=== PATIENT | female | born 1955 | race Caucasian/White ===

== ENCOUNTER → 2018-06-16 | Outpatient (CLI) | payer MEDICARE ==
--- NOTE | 2018-06-16 18:08 | BD ---
EXAMINATION TYPE: Axial Bone Density DATE OF EXAM: 06/16/2018 COMPARISON: NONE CLINICAL HISTORY: 63-year-old female postmenopausal screening without HRT Height: 64 inches Weight: 184 FRAX RISK QUESTIONS: Alcohol (3 or more units per day): no Family History (Parent hip fracture): no Glucocorticoids (More than 3mos): no (Ex: prednisone, prednisolone, methylprednisolone, dexamethasone, and hydrocortisone). History of Fracture in Adulthood: yes, calcaneus Secondary Osteoporosis: 1. Type 1 Diabetes: no 2. Hyperthyroidism: no 3. Menopause before 45: yes 4. Malnutrition: no 5. Chronic liver disease: no Rheumatoid Arthritis: no Current Tobacco Use: no RISK FACTORS HISTORY OF: Family History of Osteoporosis: not to patient's knowledge Active: yes Diet low in dairy products/other sources of calcium: no, several servings throughout the week Postmenopausal woman: yes Take estrogen and/or progesterone medications: not now How long: about 5 years Lost more than 2 inches in height since high school: no Frequent falls: no Poor Health: no Hyperparathyroidism: no Adrenal Insufficiency: no MEDICATIONS: Prednisone or other steroids: no Thyroid Medications: yes Which medication: Levothyroxine How Long: since patient was in early 20s Osteoporosis Medications: no Additional Medications: calcium & Vitamin D Additional History: bilateral hip pain EXAM MEASUREMENTS: Bone mineral densitometry was performed using the [employer] System. Bone mineral density as measured about the Lumbar spine is: ----- L1-L4(G/cm2): 1.098 T Score Values are as follows: ----- L2: -1.5 ----- L3: -0.1 ----- L4: -0.1 ----- L1-L4: -0.7 Bone mineral density has: Increased 14.1% since study of: 11/29/2007 (more recent study in physician office Bone mineral density about the R hip (g/cm2): 0.735 Bone mineral density about the L hip (g/cm2): 0.753 T Score values are as follows: -----R Neck: -2.2 -----L Neck: -2.1 -----R Total: -1.2 -----L Total: -1.7 Bone mineral density has: Decreased -1.1% since study of: 11/29/2007 (more recent study in physician office) IMPRESSION: Osteopenia (T Score between -2.5 and -1). There is slightly increased risk of fracture and the patient may be considered for treatment. Re-Screen 2-5 years. NOTE: T-SCORE=SD OF THE YOUNG ADULT MEAN.
--- NOTE | 2018-06-17 09:14 | MM ---
Reason for exam: screening (asymptomatic). Last mammogram was performed 1 year ago. History: Patient is postmenopausal. Family history of breast cancer in grandmother. Took estrogen for 5 years. Took progesterone for 5 years. Physical Findings: A clinical breast exam by your physician is recommended on an annual basis and results should be correlated with mammographic findings. MG 3D Screening Mammo W/Cad Bilateral CC and MLO view(s) were taken. Prior study comparison: June 14, 2017, bilateral MG 3d screening mammo w/cad. April 15, 2015, bilateral MG screening mammo w CAD. The breast tissue is heterogeneously dense. This may lower the sensitivity of mammography. No significant changes when compared with prior studies. ASSESSMENT: Negative, BI-RAD 1 RECOMMENDATION: Routine screening mammogram of both breasts in 1 year.
== END | disposition home or self-care (01) ==
LOC: RADMAMWWP 08:58
PROVIDERS: ATTEND Family Medicine
DX: Z12.31 Encounter for screening mammogram for malignant neoplasm of breast (principal); M85.851 Other specified disorders of bone density and structure, right thigh; M85.852 Other specified disorders of bone density and structure, left thigh; M85.89 Other specified disorders of bone density and structure, multiple sites; Z78.0 Asymptomatic menopausal state
CPT/HCPCS: 77063; 77067; 77080

== ENCOUNTER 2019-04-13 18:42 | Observation (INO) | payer MEDICARE ==
[2019-04-13] MEDS ORDERED: MECLIZINE 12.5 MG TAB PO STA (19:21)
--- NOTE | 2019-04-13 19:36 | ED ---
General Adult HPI - General Source: patient Mode of arrival: ambulatory Limitations: no limitations <Heladio Harding - Last Filed: 04/13/19 22:18> <Yary Solis - Last Filed: 04/18/19 13:02> - General Chief complaint: Neuro Symptoms/Deficit Stated complaint: Dizzy, ringing in ears Time Seen by Provider: 04/13/19 19:00 - History of Present Illness Initial comments: Patient is a 63-year-old female with history of vertigo was presenting to the emergency department with chief complaint of dizziness. Patient reports she initially developed vertigo for about a week and has been gradually getting better , however it is still present. Patient also reports for the past day she has developed tinnitus in both ears but more on the right side on the left. Patient does report ALLERGIES and takes Zyrtec daily. Patient reports nausea but no vomiting over the past week. Patient denies any lightheadedness, heada ches, chest pain, blurry vision or shortness of breath. (Heladio Harding) - Related Data Home Medications Medication Instructions Recorded Confirmed Levothyroxine Sodium [Synthroid] 125 mcg PO HS 05/02/14 04/14/19 Cetirizine HCl [Zyrtec] 10 mg PO HS 04/13/19 04/14/19 Losartan Potassium [Cozaar] 25 mg PO DAILY 04/13/19 04/14/19 Previous Rx's Medication Instructions Recorded Meclizine [Antivert] 25 mg PO BID PRN #20 tab 04/14/19 Allergies Allergy/AdvReac Type Severity Reaction Status Date / Time No Known Allergies Allergy Verified 04/14/19 04:11 Review of Systems ROS Other: All systems not noted in ROS Statement are negative. <Heladio Harding - Last Filed: 04/13/19 22:18> ROS Other: All systems not noted in ROS Statement are negative. <Yary Solis - Last Filed: 04/18/19 13:02> ROS Statement: Those systems with pertinent positive or pertinent negative responses have been documented in the HPI. Past Medical History Past Medical History: Thyroid Disorder History of Any Multi-Drug Resistant Organisms: None Reported Past Surgical History: No Surgical Hx Reported, Cholecystectomy, Orthopedic Surgery Past Psychological History: No Psychological Hx Reported Smoking Status: Never smoker Past Alcohol Use History: Occasional Past Drug Use History: None Reported <Heladio Harding - Last Filed: 04/13/19 22:18> General Exam Limitations: no limitations General appearance: alert, in no apparent distress Head exam: Present: atraumatic, normocephalic, normal inspection Eye exam: Present: normal appearance, PERRL, EOMI Pupils: Present: normal accommodation ENT exam: Present: normal exam, normal oropharynx, mucous membranes moist, TM's normal bilaterally, normal external ear exam Neck exam: Present: normal inspection, full ROM Respiratory exam: Present: normal lung sounds bilaterally Cardiovascular Exam: Present: regular rate, normal rhythm, normal heart sounds Extremities exam: Present: normal inspection Back exam: Present: normal inspection Neurological exam: Present: alert, oriented X3 Psychiatric exam: Present: normal affect, normal mood Skin exam: Present: warm, intact, normal color <Heladio Harding - Last Filed: 04/13/19 22:18> Course Vital Signs 04/13/19 04/13/19 04/14/19 18:48 22:34 04:00 Temperature 97.5 F L 98 F 97.2 F L Pulse Rate 54 L 54 L Pulse Rate [ 50 L Pulse Oximetery ] Respiratory 20 18 18 Rate Blood Pressure 147/89 173/81 Blood Pressure 115/61 [Right Arm] O2 Sat by Pulse 97 100 96 Oximetry EKG Findings - EKG Comments: EKG Findings:: Sinus bradycardia. Inverted T waves in V1 through V3. Ventricular rate 51, W[place] interval 162, QRS duration 94, QT/QTc 460/431. <Heladio Harding - Last Filed: 04/13/19 22:18> Medical Decision Making - Lab Data Result diagrams: 04/13/19 19:08 04/13/19 19:08 <Heladio Harding - Last Filed: 04/13/19 22:18> - Lab Data Result diagrams: 04/13/19 19:08 04/13/19 19:08 <Yary Solis - Last Filed: 04/18/19 13:02> - Medical Decision Making Patient is 63-year-old female with history of vertigo is presenting to the emergency department with a chief complaint of dizziness. Patient reports she developed onset of vertigo about one week ago which has not resolved. Patient reports over the last day she has also developed tendinitis on the right side more than the left. Patient also has right-sided fullness. I suspect the patient to have Mnire's disease. However, considering the patient never had a previous workup and her age. Basic labs EKG and a CT was obtained. Patient does have ALLERGIES and is take Zyrtec daily. Patient does have decreased kidney function but that is very similar to her last draws. EKG showing no ST elevation but does show inverted T waves potentially indicating cardiac ischemia. Patient has no previous cardiac history but does have hypertension. No previous EKG available for comparison. Patient had no previous workup regarding the vertigo. Considering the abnormal EKG results with no available comparison. Cardiac workup will be initiated and patient will be admitted for observation. Patient is understanding and agreeable. All questions answered. Case discussed with Dr. Solis consulting physician is Dr Byrne. Cardiology consulted. Neurology consulted. (Heladio Harding) I was available for consultation in the emergency department. The history and physical exam were done by the midlevel provider. I was consulted for this patients care. I reviewed the case with the midlevel provider and based on their presentation of the patient, I agree with the assessment, medical decision making and plan of care as documented. I evaluated the patient myself and she was agreeable to the plan.I discussed the case with Dr. Byrne who accepted admission. Chart was dictated using [employer] dictation software. Attempts were made to correct any dictation errors however some typographical errors may persist. (Yary Solis) - Lab Data Lab Results 04/13/19 04/13/19 04/13/19 Range/Units 19:08 19:08 19:08 WBC 6.0 (3.8-10.6) k/uL RBC 4.53 (3.80-5.40) m/uL Hgb 13.7 (11.4-16.0) gm/dL Hct 41.0 (34.0-46.0) % MCV 90.4 (80.0-100.0) fL MCH 30.2 (25.0-35.0) pg MCHC 33.4 (31.0-37.0) g/dL RDW 12.9 (11.5-15.5) % Plt Count 224 (150-450) k/uL Neutrophils % 65 % Lymphocytes % 25 % Monocytes % 6 % Eosinophils % 3 % Basophils % 1 % Neutrophils # 3.9 (1.3-7.7) k/uL Lymphocytes # 1.5 (1.0-4.8) k/uL Monocytes # 0.3 (0-1.0) k/uL Eosinophils # 0.2 (0-0.7) k/uL Basophils # 0.1 (0-0.2) k/uL PT 9.6 (9.0-12.0) sec INR 0.9 (<1.2) APTT 23.2 (22.0-30.0) sec Sodium 143 (137-145) mmol/L Potassium 4.0 (3.5-5.1) mmol/L Chloride 102 (98-107) mmol/L Carbon Dioxide 25 (22-30) mmol/L Anion Gap 16 mmol/L BUN 25 H (7-17) mg/dL Creatinine 1.08 H (0.52-1.04) mg/dL Est GFR (CKD-EPI)AfAm 64 (>60 ml/min/1.73 sqM) Est GFR (CKD-EPI)NonAf 55 (>60 ml/min/1.73 sqM) Glucose 85 (74-99) mg/dL Calcium 9.9 (8.4-10.2) mg/dL Magnesium (1.6-2.3) mg/dL Total Bilirubin 0.4 (0.2-1.3) mg/dL AST 23 (14-36) U/L ALT 28 (9-52) U/L Alkaline Phosphatase 77 (38-126) U/L Troponin I (0.000-0.034) ng/mL Total Protein 7.5 (6.3-8.2) g/dL Albumin 4.8 (3.5-5.0) g/dL TSH (0.465-4.680) mIU/L Free T4 (0.78-2.19) ng/dL 04/13/19 04/13/19 04/13/19 Range/Units 19:08 19:08 19:08 WBC (3.8-10.6) k/uL RBC (3.80-5.40) m/uL Hgb (11.4-16.0) gm/dL Hct (34.0-46.0) % MCV (80.0-100.0) fL MCH (25.0-35.0) pg MCHC (31.0-37.0) g/dL RDW (11.5-15.5) % Plt Count (150-450) k/uL Neutrophils % % Lymphocytes % % Monocytes % % Eosinophils % % Basophils % % Neutrophils # (1.3-7.7) k/uL Lymphocytes # (1.0-4.8) k/uL Monocytes # (0-1.0) k/uL Eosinophils # (0-0.7) k/uL Basophils # (0-0.2) k/uL PT (9.0-12.0) sec INR (<1.2) APTT (22.0-30.0) sec Sodium (137-145) mmol/L Potassium (3.5-5.1) mmol/L Chloride (98-107) mmol/L Carbon Dioxide (22-30) mmol/L Anion Gap mmol/L BUN (7-17) mg/dL Creatinine (0.52-1.04) mg/dL Est GFR (CKD-EPI)AfAm (>60 ml/min/1.73 sqM) Est GFR (CKD-EPI)NonAf (>60 ml/min/1.73 sqM) Glucose (74-99) mg/dL Calcium (8.4-10.2) mg/dL Magnesium 2.2 (1.6-2.3) mg/dL Total Bilirubin (0.2-1.3) mg/dL AST (14-36) U/L ALT (9-52) U/L Alkaline Phosphatase (38-126) U/L Troponin I <0.012 (0.000-0.034) ng/mL Total Protein (6.3-8.2) g/dL Albumin (3.5-5.0) g/dL TSH 0.135 L (0.465-4.680) mIU/L Free T4 1.76 (0.78-2.19) ng/dL Disposition Is patient prescribed a controlled substance at d/c from ED?: No Time of Disposition: 22:41 <Heladio Harding - Last Filed: 04/13/19 22:18> <Yary Solis - Last Filed: 04/18/19 13:02> Clinical Impression: Inverted T wave, Dizziness, Tinnitus Disposition: ADMITTED IP TO THIS HOSP Condition: Stable
[2019-04-13 20:08] LABS: Basophils # (A) 0.1 k/uL (0-0.2); Basophils % (A) 1 %; Eosinophils # (A) 0.2 k/uL (0-0.7); Eosinophils % (A) 3 %; HGB 13.7 gm/dL (11.4-16.0); Lymphocytes # (A) 1.5 k/uL (1.0-4.8); Lymphocytes % (A) 25 %; MCH 30.2 pg (25.0-35.0); MCHC 33.4 g/dL (31.0-37.0); MCV 90.4 fL (80.0-100.0); Mean Platelet Volume 6.7; Monocytes # (A) 0.3 k/uL (0-1.0); Monocytes % (A) 6 %; Neutrophils # (A) 3.9 k/uL (1.3-7.7); Neutrophils % (A) 65 %; Platelet Count 224 k/uL (150-450); RBC 4.53 m/uL (3.80-5.40); RDW 12.9 % (11.5-15.5)
[2019-04-13 20:16] LABS: Albumin 4.8 g/dL (3.5-5.0); Calcium 9.9 mg/dL (8.4-10.2); Total Bilirubin 0.4 mg/dL (0.2-1.3); Total Protein 7.5 g/dL (6.3-8.2)
[2019-04-13 20:18] LABS: INR 0.9 (<1.2); Partial Thromboplastin Time 23.2 sec (22.0-30.0); Prothrombin Time 9.6 sec (9.0-12.0)
--- NOTE | 2019-04-13 22:22 | XR ---
EXAM: XR Chest, 2 Views CLINICAL HISTORY: Chest pain. TECHNIQUE: Frontal and lateral views of the chest. COMPARISON: 05/02/2014. FINDINGS: Lungs: No consolidative change. There is 0.4 cm calcified granuloma at the periphery of the left midlung zone is again noted. Pleural space: No pneumothorax. No pleural effusion. Heart: Cardiac mediastinal silhouettes are unremarkable. Mediastinum: See above. Bones/joints: Osteopenia. Ribs are unremarkable. 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 IMPRESSION: No active disease.
[2019-04-13] MEDS ORDERED: DIAZEPAM 5 MG/ML 2 ML INJ IVP STA (22:41)
[2019-04-14] MEDS ORDERED: NALOXONE 0.4 MG/ML 1 ML VIAL IV PRN (00:10)
[2019-04-14] MEDS ORDERED: methylPREDNISolone SOD SUCCI 40 MG/ML 1 ML VIAL IV STA (09:03)
[2019-04-14] MEDS ORDERED: LOSARTAN 25 MG TAB PO SCH (09:15)
--- NOTE | 2019-04-14 11:30 | CT ---
EXAMINATION TYPE: CT brain wo con DATE OF EXAM: 04/13/2019 COMPARISON: None INDICATION: Vertigo DLP: 1100.4 mGycm, Automated exposure control for dose reduction was used. CONTRAST: None CT of the brain is performed utilizing 3 mm thick sections through the posterior fossa and 3 mm thick sections through the remaining calvarium. Study is performed within 24 hours of arrival to the hosp [facility]. No abnormal hyperdensity is present to suggest an acute intracranial hemorrhage. No mass lesion is evident. No acute infarcts are evident. Ventricles and sulci are appropriate for the patient age. Paranasal sinuses and mastoid air cells within the [id number] are clear. IMPRESSIONS: 1. Normal CT Brain 2. Preliminary report was provided by the on-call radiologist.
--- NOTE | 2019-04-14 12:09 | P.HPIM ---
History of Present Illness H&P Date: 04/14/19 Chief Complaint: vertigo Betty Izquierdo is a 63 yo F with PMH of HTN, hypothyroidism, allergic rhinitis who presented to the ED complaining of 1 week history of vertigo and tinnitus. She traces this episode back to last week when she woke up and shortly after saw a twinkle of light out of her L peripheral vision. This lasted for a few hours and she had her eyes checked at the opthamologist. After she had a dilated eye exam, she states she began to experience vertigo sensation she was spinning. She states this has been present almost constantly since it began but has been slowly getting better. The past few days she also has been experiencing tinnitus. Denies muffled hearing, congestion, or sore throat. She has been taking zyrtec for her allergies. Pt denies any muscle weakness, numbness or tingling or speech change. In the ED vitals and blood work unremarkable, trop negative, CXR clear and CT head without acute process. Review of Systems All systems: negative Constitutional: Denies chills, Denies fever Eyes: denies blurred vision, denies pain Ears: bilateral: tinnitus, deny: decreased hearing, ear discharge Ears, nose, mouth and throat: Reports nasal congestion, Reports vertigo, Denies headache, Denies sore throat Cardiovascular: Denies chest pain, Denies shortness of breath Respiratory: Denies cough Gastrointestinal: Denies abdominal pain, Denies diarrhea, Denies nausea, Denies vomiting Genitourinary: Denies dysuria, Denies hematuria Musculoskeletal: Denies myalgias Integumentary: Denies pruritus, Denies rash Neurological: Denies numbness, Denies weakness Psychiatric: Denies anxiety, Denies depression Endocrine: Denies fatigue, Denies weight change Past Medical History Past Medical History: Hypertension, Thyroid Disorder History of Any Multi-Drug Resistant Organisms: None Reported Past Surgical History: Cholecystectomy, Orthopedic Surgery Past Anesthesia/Blood Transfusion Reactions: No Reported Reaction Past Psychological History: No Psychological Hx Reported Smoking Status: Never smoker Past Alcohol Use History: Occasional Past Drug Use History: None Reported Medications and Allergies Home Medications Medication Instructions Recorded Confirmed Type Levothyroxine Sodium [Synthroid] 125 mcg PO HS 05/02/14 04/14/19 History Cetirizine HCl [Zyrtec] 10 mg PO HS 04/13/19 04/14/19 History Losartan Potassium [Cozaar] 25 mg PO DAILY 04/13/19 04/14/19 History Allergies Allergy/AdvReac Type Severity Reaction Status Date / Time No Known Allergies Allergy Verified 04/14/19 04:11 Physical Exam Vitals: Vital Signs Temp Pulse Pulse Resp BP BP BP 04/14/19 08:00 97.9 F 63 17 106/73 04/14/19 04:00 97.2 F L 50 L 18 115/61 04/13/19 22:34 98 F 54 L 18 173/81 04/13/19 18:48 97.5 F L 54 L 20 147/89 Pulse Ox 04/14/19 08:00 98 04/14/19 04:00 96 04/13/19 22:34 100 04/13/19 18:48 97 Intake and Output 04/13/19 04/14/19 04/14/19 22:59 06:59 14:59 Other: Voiding Method Toilet Toilet # Voids 1 Weight 77.111 kg General: well nourished, well developed, NAD. Vitals reviewed Eyes: PERRL, EOMI, conjunctiva normal HENT: normocephalic, mucus membranes moist Neck: supple, no JVD Lungs: normal respiratory effort, no wheezes or rales CV: Regular rate and rhythm, no murmur. Peripheral pulses 2+ Abdomen: soft, nondistended, no organomegaly Lymph: no cervical or axillary LAD Skin: warm and dry. Neuro: A&Ox3, normal mood and affect. Tonya-hallpike negative. No nystagmus. Cerebellar testing normal. Str 5/5 and symmetric Results CBC & Chem 7: 04/13/19 19:08 04/13/19 19:08 Labs: Abnormal Lab Results - Last 24 Hours (Table) 04/13/19 Range/Units 19:08 BUN 25 H (7-17) mg/dL Creatinine 1.08 H (0.52-1.04) mg/dL Thrombosis Risk Factor Assmnt - Choose All That Apply Any of the Below Risk Factors Present?: Yes Each Factor Represents 1 point: Obesity (BMI >25) Other Risk Factors: Yes Each Risk Factor Represents 2 Points: Age 61-74 years Other congenital or acquired thrombophilia - If yes, enter type in comment: No Thrombosis Risk Factor Assessment Total Risk Factor Score: 3 Thrombosis Risk Factor Assessment Level: Moderate Risk Assessment and Plan (1) Vertigo Current Visit: Yes Status: Acute Code(s): R42 - DIZZINESS AND GIDDINESS SNOMED Code(s): 717338084 (2) Hypothyroid Current Visit: Yes Status: Acute Code(s): E03.9 - HYPOTHYROIDISM, UNSPECIFIED SNOMED Code(s): 49200916 (3) Hypertension Current Visit: Yes Status: Acute Code(s): I10 - ESSENTIAL (PRIMARY) HYPERTENSION SNOMED Code(s): 07435623 (4) Tinnitus Current Visit: Yes Status: Acute Code(s): H93.19 - TINNITUS, UNSPECIFIED EAR SNOMED Code(s): 95206067 (5) Allergic rhinitis Current Visit: Yes Status: Acute Code(s): J30.9 - ALLERGIC RHINITIS, UNSPECIFIED SNOMED Code(s): 54254599 Plan: 1. Vertigo. Tinnitus. Suspect viral labyrinthitis. Neurology consulted. Check TSH, B12, folate and ESR. Solumedrol one time dose. Meclizine prn 2. HTN. Continue cozaar 3. Hypothyroidism. Cont synthroid 4. Allergies. Cont zyrtec
[2019-04-14 12:11] VITALS: BP 114/72; PULSE 52; RESP 18; TEMP 98.1
--- NOTE | 2019-04-14 14:29 | P.CNNES ---
History of Present Illness Consult date: 04/14/19 Reason for Consult: Dizziness Chief complaint: Dizziness/vertigo and tinnitus History of Present Illness: HISTORY OF PRESENT ILLNESS: Thank you for allowing me to evaluate Ms. Betty Izquierdo is a 63 year-old woman with PMhx of hypothyroidism, HTN, presenting with episode of dizziness x several day, consulting Neurology for evaluation of vertigo. Patient states that she started having some issues of feeling off balance since a couple of days ago. She denies any room-spinning sensation. During the same time, patient also noticed that she was having humming noise in her head, not necessarily in either ear. The humming noise has been persistent. Patient states that intermittently, she needed to hold onto the wall to walk, but at this time, she just feels slightly off balance. Patient denies any recent sickness, fever, double/blurry vision, weakness, numbness, tingling, headache. Patient states that she had a similar episode about 8 years ago when people around her were also having similar symptoms, was given a medication and got better although she was practically in bed most of the time for a couple of days. Denies any pain in her ears. Of note, patient injured her left heel years ago, and so patient feels a little bit off balance at baseline from the pain in her left heel PAST MEDICAL HISTORY: hypothyroidism, HTN PAST SURGICAL HISTORY: Cholecystectomy, orthopedic surgery HOME MEDICATIONS: daily zyrtec, levothyroxine, losartan ALLERGIES: NKDA SOCIAL HISTORY: Former smoker. A few years as a teenager. FAMILY HISTORY: Father had throat cancer. Mother had a brain aneurysm and had a stroke as a result. REVIEW OF SYSTEMS: The 14 systems are reviewed and no additional points are identified compared to the review of systems documented history and physical PHYSICAL EXAMINATION: VITAL SIGNS: T 97.9 HR 63 RR 17 BP 106/73 O2 sat 98% on RA GEN.: NAD, pleasant and cooperative HEENT: NCAT, sclera without icterus NECK: Supple SKIN AND EXTREMITIES: Warm to touch, no edema NEURO: MENTAL STATUS: Patient alert and oriented to self, place, time. Able to name the current president. Speech fluent, able to name and repeat, following all commands readily. No right and left disorientation, neglect. CRANIAL NERVES II THROUGH XII: II: Pupils are equal and reactive to light symmetrically. No afferent pupillary defect. Visual rodriguez are intact. III, IV, : No ptosis. Extraocular movements full. No nystagmus. V: Facial sensation intact from V1-3. VII. No clear facial asymmetry. VIII: slightly to finger rub bilaterally. IX, X: Symmetric palate elevation. XI: Shoulder shrug intact. XII: Tongue midline without fasciculation or atrophy. MOTOR: Normal bulk/tone. No pronator drift or tremor. Strength is 5/5 throughout all 4 extremities. SENSORY: Intact to light touch, temperature, pinprick in all 4 extremities. Romberg is negative. REFLEXES: 2+ throughout. Toes are downgoing. No clonus. Иван's is absent COORDINATION: Finger to nose and heel to browning intact. No dysmetria. Rapid alternating movements with good speed and accuracy. GAIT: Narrow-based and stable. Able to toe/heel/tandem walk but with some difficulty due to L heel pain HIINTS: negative DIAGNOSTIC TESTING: LABORATORY: WBC 6.0 Hgb 13.7 Plt 224 PT 9.6 INR 0.9 Na 143 K 4.0 Cl 102 Bicarb 25 BUN 25 Cr 1.08 AST 23 ALT 28 glucose 85 troponin <0.012 IMAGING: CT Head w/o contrast 04/13/19: No acute intracranial process. b/l BG small calcification ASSESSMENT: Ms. Izquierdo is a 63 year-old woman with PMhx of hypothyroidism, HTN, presenting with episode of dizziness x several day, consulting Neurology for evaluation of vertigo. Patient denies ever having a room spinning sensation. Patient at this time with no focal deficits. Patient also reporting a humming noise in her head, most likely tinnitus. Her feeling of "off- balance" most likely a peripheral etiology. Patient reports that her symptoms improved with steroids that was given in ER. RECOMMENDATIONS: 1. ENT outpatient follow up within 1-2 weeks 2. No additional inpatient work-up recommended 3. Neurology will sign off at this time. Past Medical History Past Medical History: Hypertension, Thyroid Disorder History of Any Multi-Drug Resistant Organisms: None Reported Past Surgical History: Cholecystectomy, Orthopedic Surgery Past Anesthesia/Blood Transfusion Reactions: No Reported Reaction Past Psychological History: No Psychological Hx Reported Smoking Status: Never smoker Past Alcohol Use History: Occasional Past Drug Use History: None Reported Medications and Allergies Home Medications Medication Instructions Recorded Confirmed Type Levothyroxine Sodium [Synthroid] 125 mcg PO HS 05/02/14 04/14/19 History Cetirizine HCl [Zyrtec] 10 mg PO HS 04/13/19 04/14/19 History Losartan Potassium [Cozaar] 25 mg PO DAILY 04/13/19 04/14/19 History Meclizine [Antivert] 25 mg PO BID PRN #20 tab 04/14/19 Rx Allergies Allergy/AdvReac Type Severity Reaction Status Date / Time No Known Allergies Allergy Verified 04/14/19 04:11 Physical Examination - Vital Signs Vital Signs: Vital Signs Temp Pulse Pulse Resp BP BP BP 04/14/19 08:00 97.9 F 63 17 106/73 04/14/19 04:00 97.2 F L 50 L 18 115/61 04/13/19 22:34 98 F 54 L 18 173/81 04/13/19 18:48 97.5 F L 54 L 20 147/89 Pulse Ox 04/14/19 08:00 98 04/14/19 04:00 96 04/13/19 22:34 100 04/13/19 18:48 97 Intake and Output 04/13/19 04/14/19 04/14/19 22:59 06:59 14:59 Other: Voiding Method Toilet Toilet # Voids 1 Weight 77.111 kg Results - Laboratory Findings CBC and BMP: 04/13/19 19:08 04/13/19 19:08 Abnormal Lab Findings: Abnormal Labs 04/13/19 19:08 BUN 25 H Creatinine 1.08 H
[2019-04-14 16:26] LABS: T4, Free (Free Thyroxine) 1.76 ng/dL (0.78-2.19)
[2019-04-14] MEDS ORDERED: LEVOTHYROXINE 125 MCG TAB PO SCH (21:00)
[2019-04-14] MEDS ORDERED: LORATADINE 10 MG TAB PO SCH (21:00)
--- NOTE | 2019-04-15 13:48 | P.DS ---
Providers Date of admission: 04/13/19 22:42 Expected date of discharge: 04/14/19 Attending physician: Grant Byrne MD Consults: 04/13/19 22:42 Consult Physician Stat Consulting Provider: Becky Rodriguez Reason/Comments: Dizziness Do you want consulting provider notified?: Yes Primary care physician: Radha Stewart - Discharge Diagnosis(es) (1) Vertigo Status: Acute (2) Hypothyroid Status: Acute (3) Hypertension Status: Acute (4) Tinnitus Status: Inactive (5) Allergic rhinitis Status: Acute Hospital Course: Betty Izquierdo is a 63 yo F with PMH of HTN, hypothyroidism, allergic rhinitis who presented to the ED complaining of 1 week history of vertigo and tinnitus. She traces this episode back to last week when she woke up and shortly after saw a twinkle of light out of her L peripheral vision. This lasted for a few hours and she had her eyes checked at the opthamologist. After she had a dilated eye exam, she states she began to experience vertigo sensation she was spinning. She states this has been present almost constantly since it began but has been slowly getting better. The past few days she also has been experiencing tinnitus. Denies muffled hearing, congestion, or sore throat. She has been taking zyrtec for her allergies. Pt denies any muscle weakness, numbness or tingling or speech change. In the ED vitals and blood work unremarkable, trop negative, CXR clear and CT head without acute process. Pt was admitted to observation and Neurology consulted. TSH, B12 and folate were checked. TSH low at 0.135 with normal T4, remained of labs unremarkable. Pt was given solumedrol IV for suspected viral labarynthitis. Neurology saw pt and signed off with recommendation for outpatient ENT follow up. She is discharged in stable condition and will continue antivert prn. Discharge exam General: well nourished, well developed, NAD. Vitals reviewed HENT: normocephalic, mucus membranes moist Lungs: normal respiratory effort, no wheezes or rales CV: Regular rate and rhythm, no murmur. Peripheral pulses 2+ Abdomen: soft, nondistended, no organomegaly Skin: warm and dry. Neuro: A&Ox3, normal mood and affect Patient Condition at Discharge: Stable Plan - Discharge Summary Discharge Rx Participant: No New Discharge Prescriptions: New Meclizine [Antivert] 25 mg PO BID PRN #20 tab PRN Reason: Vertigo Continue Levothyroxine Sodium [Synthroid] 125 mcg PO HS Cetirizine HCl [Zyrtec] 10 mg PO HS Losartan Potassium [Cozaar] 25 mg PO DAILY Discharge Medication List Levothyroxine Sodium [Synthroid] 125 mcg PO HS 05/02/14 [History] Cetirizine HCl [Zyrtec] 10 mg PO HS 04/13/19 [History] Losartan Potassium [Cozaar] 25 mg PO DAILY 04/13/19 [History] Meclizine [Antivert] 25 mg PO BID PRN #20 tab 04/14/19 [Rx] Follow up Appointment(s)/Referral(s): Pillo Estrada DO [Doctor of Osteopathic Medicine] - 1 Week Radha Stewart DO [Primary Care Provider] - 1-2 days Discharge Disposition: HOME SELF-CARE
== END 2019-04-14 13:41 | disposition home or self-care (01) ==
LOC: EC 18:42 → 1SOBS 22:42
PROVIDERS: ADMIT Family Medicine; ATTEND Family Medicine
DX: R42 Dizziness and giddiness (principal); E03.9 Hypothyroidism, unspecified; H93.13 Tinnitus, bilateral; R11.0 Nausea; R94.31 Abnormal electrocardiogram [ECG] [EKG]; I10 Essential (primary) hypertension; J30.9 Allergic rhinitis, unspecified; Z90.49 Acquired absence of other specified parts of digestive tract; Z79.890 Hormone replacement therapy; Z79.899 Other long term (current) drug therapy; E66.9 Obesity, unspecified; Z68.29 Body mass index [BMI] 29.0-29.9, adult; Z87.891 Personal history of nicotine dependence; Z80.8 Family history of malignant neoplasm of other organs or systems; Z82.3 Family history of stroke
CPT/HCPCS: 96375; 96374; 99285; 36415; 93005; 84439; 80053; 85652; 84443; 82607; 82746; 83735; 84484 ×2; 85025; 85610; 85730; 71046; 70450; G0378 ×2; J2920; J3360

== ENCOUNTER → 2020-04-08 | Outpatient (CLI) | payer MEDICARE ==
--- NOTE | 2020-04-09 14:00 | MM ---
Reason for exam: screening (asymptomatic). Last mammogram was performed 1 year and 10 months ago. History: Patient is postmenopausal. Family history of breast cancer in grandmother. Took estrogen for 5 years. Took progesterone for 5 years. Physical Findings: A clinical breast exam by your physician is recommended on an annual basis and results should be correlated with mammographic findings. MG 3D Screening Mammo W/Cad Bilateral CC and MLO view(s) were taken. Prior study comparison: June 16, 2018, bilateral MG 3d screening mammo w/cad. June 14, 2017, bilateral MG 3d screening mammo w/cad. The breast tissue is heterogeneously dense. This may lower the sensitivity of mammography. No significant changes when compared with prior studies. ASSESSMENT: Benign, BI-RAD 2 RECOMMENDATION: Routine screening mammogram of both breasts in 1 year.
== END | disposition home or self-care (01) ==
LOC: RADMAMWWP 10:52
PROVIDERS: ATTEND Family Medicine
DX: Z12.31 Encounter for screening mammogram for malignant neoplasm of breast (principal)
CPT/HCPCS: 77063; 77067

== ENCOUNTER → 2022-08-03 | Outpatient (CLI) | payer MEDICARE ==
--- NOTE | 2022-08-04 20:45 | MM ---
Reason for Exam: Screening (asymptomatic). Last mammogram was performed 2 year(s) and 4 month(s) ago. Patient History: Menarche at age 14. First Full-Term at age 22. Postmenopausal. Estrogen for 5 years until age 46. Progesterone for 5 years until age 46. Maternal grandmother had breast cancer. Risk Values: Sarah 5 year model risk: 1.5%. NCI Lifetime model risk: 5.4%. Prior Study Comparison: 06/14/2017 Bilateral Screening Mammogram, [facility]. 06/16/2018 Bilateral Screening Mammogram, [facility]. 04/08/2020 Bilateral Screening Mammogram, [facility]. Tissue Density: The breast tissue is heterogeneously dense. This may lower the sensitivity of mammography. Findings: Analyzed By CAD. There is no suspicious group of microcalcifications or new suspicious mass in either breast. Overall Assessment: Negative, BI-RAD 1 Management: Screening Mammogram of both breasts in 1 year. 1. Patient should continue monthly self breast exams. 2. A clinical breast exam by your physician is recommended on an annual basis. 3. This exam should not preclude additional follow-up of suspicious palpable abnormalities. Electronically signed and approved by: Regine Goins M.D. Radiologist
== END | disposition home or self-care (01) ==
LOC: RADMAMWWP 14:52
PROVIDERS: ATTEND Family Medicine
DX: Z12.31 Encounter for screening mammogram for malignant neoplasm of breast (principal); Z78.0 Asymptomatic menopausal state; Z80.3 Family history of malignant neoplasm of breast
CPT/HCPCS: 77063; 77067